=== PATIENT | female | born 1955 | race Asian ===

== ENCOUNTER 2024-12-31 08:33 | Day surgery (SDC) | payer OTHER ==
[2024-12-26 15:35] VITALS: BMI 34.5
[2024-12-31 08:51] VITALS: RESP 18
[2024-12-31 12:00] VITALS: TEMP 97.1
[2024-12-31 12:01] VITALS: BP 121/64; PULSE 61
== END 2024-12-31 11:45 | disposition home or self-care (01) ==
LOC: FASU-ENDO 08:33
PROVIDERS: ATTEND Internal Medicine Gastroenterology
PROC: 0DBP8ZZ Excision of Rectum, Via Natural or Artificial Opening Endoscopic (ICD-10-PCS; principal; 2024-12-31 10:56)
DX: Z12.11 Encounter for screening for malignant neoplasm of colon (principal); Z86.0109 Personal history of other colon polyps; K64.0 First degree hemorrhoids; K64.8 Other hemorrhoids
CPT/HCPCS: 82962; 88305-TC